=== PATIENT | female | born 1995 | race Caucasian/White ===

== ENCOUNTER 2019-09-28 07:26 | Inpatient (IN) ==
[2019-09-28] MEDS ORDERED: OXYTOCIN 30 UNITS/500 ML BAG IV PRN ×2 (08:52→08:59)
[2019-09-28] MEDS ORDERED: CEFAZOLIN 2000MG 2,000 MG/15 ML SYR IV STA (08:56)
--- NOTE | 2019-09-28 09:00 | History & Physical Report ---
Date of Service September 28, 2019 Assessment & Plan (1) Carrier of group B Streptococcus: (2) Supervision of normal intrauterine in primigravida: 23yo at 39.[address] endy [place]. Presents for IOL for gestational hypertension. 1. Fetus: Cat 1 2. Labor: s/p de la garza. Start oxytocin 3. GBS positive. Reports that has used PCN without issue recently 4. Vitals: WNL. Will continue to monitor. PIH labs normal yesterday (3) Gestational hypertension without significant proteinuria: Admission and Anticipated Discharge Date Admission Date: September 28, 2019 History of Present Illness Primary Care Provider: NO PCP 23yo at 39.3 endy [place]. Presents for IOL for gestational hypertension. otherwise complicated by BMI 47, GBS positive and suspected LGA fetus. Denies LOF, VB. Good FM OB Labs: Blood Type A Positive 02/27/19 Antibody Screen NEGATIVE 02/27/19 Hemoglobin 11.9 g/dL (12.0-16.0) L 07/20/19 Hematocrit 34.8 % (37-47) L 07/20/19 Mean Corpuscular Volume 90.4 fL (80-100) 07/20/19 Platelet Count 212 K/uL (130-400) 07/20/19 Rubella IgG Antibody Immune (Immune) 02/27/19 Rapid Plasma Reagin Nonreactive (Nonreactive) 02/27/19 Hepatitis B Surface Antigen Neg (Neg) 02/27/19 HIV (1&2) Ab and P24 Ag, 4th Gener Neg (Neg) 02/27/19 Glucose 1 Hour 50 gm Load 125 mg/dl (70-130) 07/10/19 OB Optional Labs: Chlamydia trachomatis RNA NOT DETECTED (NOT DETECTED) 02/27/19 Neisseria gonorrhoeae RNA NOT DETECTED (NOT DETECTED) 02/27/19 Labs Reviewed: (-)cfDNA, declined CF/SMA/MSAFP-TJH Allergies Allergy/AdvReac Type Severity Reaction Status Date / Time Sulfa (Sulfonamide AdvReac Mild Unknown Verified 09/28/19 08:34 Antibiotics) Penicillins AdvReac Unknown Unknown Verified 09/28/19 08:34 Home Medications Home Medications Medication Instructions Recorded Confirmed Type PNV 153-FA 400 mcg-om3 35 mg-dha 1 tab PO DAILY 02/16/19 09/28/19 History 25 mg-epa 5 mg-fish oil chew tablet Patient History Social History Preferred Language: Emir[place] Communication Ability: Effective Building Appraiser Required: No Beliefs That Will Affect Care: None marital status: marital status details: Mello De Santiago ( 30) [phone] Current Living Situation: Spouse Current Living Situation Comment: lives with spouse, 1 dog, 2 cats, changing litter current occupational status: employed current occupation: [employer] Other Information That Helps Us Care for You: No Feels Safe at Home: Yes Safety Concerns: Feels Safe At This Time Smoking Status: Former smoker Tobacco Type: cigarettes ; Cigarettes Per Day: 4 ; Do You Dip or Chew Tobacco: No ; Tobacco Cessation Education Requested by Patient: No Hx Alcohol Use: No Hx Substance Use: No Physical Exam Constitutional: WD/WN, vitals as above Respiratory: normal respiratory effort Cardiovascular: RRR, no murmur, no edema Gastrointestinal (Abdomen): Inspection/Auscultation: abdomen normal to inspection Percussion/Palpation: abdomen soft; abdomen nontender, no guarding and abdomen not rigid Neurologic: patellar DTR's 2+ bilat, sensation intact Psychiatric: A+Ox3, euthymic affect Genitourinary: OB Exam Abdomen: + vertex Manual OB Exam: + cervical dilation 2 cm, + cervical effacement 50%, + station high and + amniotic fluid OB Exam Monitor Tracing: + external FHT monitor used, + external uterine monitor used, + category I and + normal FHT variability; no category III, no early decelerations present, no late decelerations present and no variable decelerations Results & Data ([facility]) Vital Signs (Past 12 Hours) Vital Signs Temp Pulse Resp BP 09/28/19 07:43 36.7 C 85 20 129/84 09/28/19 07:40 85 129/84 Coding Level of Care Code None Diagnoses Carrier of group B Streptococcus Z22.330 Supervision of normal intrauterine in primigravida Z34.00 Gestational hypertension without significant proteinuria O13.9
[2019-09-28] MEDS ORDERED: PENICILLIN G POTASSIUM 6 MU in DEXTROSE 5% 250 ML IV STA (09:14)
[2019-09-28] MEDS: LACTATED RINGER'S 1,000 ML IV PRN ×3 (09:16→21:57)
[2019-09-28 09:24] LABS: Hematocrit (blood only) 35.9 % (37-47); Hemoglobin 11.9 g/dL (12.0-16.0); Mean Corpuscular Volume 90.4 fL (80-100); Mean Platelet Volume 10.4 fL (7.4-10.4); Platelet Count 199 K/uL (130-400); RDW Coefficient of Variation 14.1 % (11.5-14.5); RDW Standard Deviation 46.3 fL (36.4-46.3); Red Blood Count 3.97 M/uL (4.2-5.4); White Blood Count 11.13 K/uL (4.8-10.8)
[2019-09-28 09:46] LABS: Mean Corpuscular Hgb Conc 33.1 g/dL (32-36)
[2019-09-28] MEDS ORDERED: ePHEDrine sulfate 50 MG/ML AMP ONE (13:00)
[2019-09-28] MEDS ORDERED: BUPIVACAINE 0.25% 30 ML VIAL ONE (13:01)
[2019-09-28] MEDS ORDERED: fentaNYL citrate 100 MCG/2 ML VIAL ONE (13:01)
[2019-09-28] MEDS ORDERED: fentaNYL 2MCG/ML ROPIV 1.25MG/ML 100 ML BAG EPI ONE (13:01)
--- NOTE | 2019-09-28 13:21 | Anesthesiology Consultation ---
Date of Service September 28, 2019 Assessment & Plan Chart Review Chart Review: Acceptable Risk for Surgery, Patient NOT seen in Pre Admission Testing and Acceptable Risk for Labor Epidural Consults Requested none ASA ASA3 Proposed Anesthesia Anesthesia Type: Labor Epidural and CSE History Height/Weight Height: 5 ft 6 in Weight: 132.903 kg Allergies Allergy/AdvReac Type Severity Reaction Status Date / Time Sulfa (Sulfonamide AdvReac Mild Unknown Verified 09/28/19 08:34 Antibiotics) Penicillins AdvReac Unknown Unknown Verified 09/28/19 08:34 Medications Home Medications Medication Instructions Recorded Confirmed Last Taken PNV 153-FA 400 mcg-om3 35 mg-dha 1 tab PO DAILY 02/16/19 09/28/19 09/06/19 25 mg-epa 5 mg-fish oil chew tablet Active Medications Generic Name Dose Route Start Last Admin Trade Name Freq PRN Reason Stop Dose Admin Lactated Ringer's 1,000 mls @ 125 mls/hr 09/28/19 08:52 09/28/19 12:59 Lr IV 09/30/19 08:51 999 mls/hr .Q8H PRN Infusion L&D Protocol Protocol Oxytocin 30 units in 500 mls @ 10 mls/hr 09/28/19 08:59 09/28/19 11:32 Pitocin IV 09/30/19 08:58 0.6 units/hr .Q24H PRN 10 mls/hr Labor Induction/Augmentation Titration Protocol 0.6 UNITS/HR Past Medical History Medical History Asthma Cervical cancer screening H/O miscarriage, currently Obesity (BMI 30-39.9) Ovarian cyst Exercise / Class Metabolic Activity II 4-5 Yardwork/Stairs/Walk up hill Past Family History Family History Father Hypertension Grandfather Diabetes Heart disease Brother Heart murmur Mother Dyslipidemia Sister Thyroid disease Other No pertinent family history Past Surgical History Surgical History No significant past surgical history S/P lateral meniscal repair S/P MCL repair [place] teeth extracted Past Anesthesia History No Hx of Anesthesia Complications and No Family Hx of Anesthesia Complications History of PONV No Hx of PONV and No Hx of Motion Sickness Social History Smoking Status: Former smoker tobacco type: cigarettes Smoking cigarettes per day: 4 Do You Dip or Chew Tobacco: No Hx Alcohol Use: No Hx Substance Use: No substance use type: does not use Physical Exam Vital Signs Last Vital Signs Temp 36.7 C 09/28/19 11:28 Pulse 76 09/28/19 13:15 Resp 22 09/28/19 11:28 BP 137/76 09/28/19 12:37 Pulse Ox 99 09/28/19 13:15 Testing Laboratory Results 09/28/19 09:07 covid test-neg.
--- NOTE | 2019-09-28 13:22 | Labor Progress Brief Note ---
Date of Service September 28, 2019 Subjective Reason For Note: Routine Evaluation Assessment & Plan (1) Carrier of group B Streptococcus: (2) Supervision of normal intrauterine in primigravida: 23yo at [place] [place]. Presents for IOL for gestational hypertension. 1. Fetus: Cat 1 2. Labor: s/p de la garza. Start oxytocin 3. GBS positive. Reports that has used PCN without issue recently 4. Vitals: WNL. Will continue to monitor. PIH labs normal yesterday (3) Gestational hypertension without significant proteinuria: Admission and Anticipated Discharge Date Admission Date: September 28, 2019 Physical Exam Genitourinary: OB Exam Abdomen: + vertex Manual OB Exam: + cervical dilation (3.5) 3 cm, + cervical effacement 50% and + station -2 OB Exam Monitor Tracing: + external FHT monitor used, + external uterine monitor used, + category I and + normal FHT variability; no category II, no early decelerations present, no late decelerations present and no variable decelerations Results & Data ([facility]) Vital Signs (Past 12 Hours) Vital Signs Temp Pulse Resp BP Pulse Ox 09/28/19 13:15 76 99 09/28/19 13:10 84 98 09/28/19 12:37 80 137/76 09/28/19 11:28 36.7 C 81 22 137/84 09/28/19 10:38 82 131/87 09/28/19 07:43 36.7 C 85 20 129/84 09/28/19 07:40 85 129/84 Coding Level of Care Code None Diagnoses Carrier of group B Streptococcus Z22.330 Supervision of normal intrauterine in primigravida Z34.00 Gestational hypertension without significant proteinuria O13.9
[2019-09-28] MEDS ORDERED: NALOXONE HCL 0.4 MG/1 ML VIAL/CARP IV PRN (13:51)
[2019-09-28] MEDS ORDERED: NALOXONE HCL 1 MG in SODIUM CHLORIDE 0.9% 1000ML 1,000 ML IV PRN (13:51)
[2019-09-28] MEDS ORDERED: DiphenhydrAMINE HCL 50 MG/ML VIAL IV PRN (13:51)
[2019-09-28] MEDS ORDERED: ONDANSETRON INJ 2 MG/ML 2 ML VIAL IV PRN (13:51)
[2019-09-28] MEDS ORDERED: PROMETHAZINE HCL 25 MG in SODIUM CHLORIDE 0.9% 50 ML IV PRN (13:51)
[2019-09-28] MEDS ORDERED: ePHEDrine sulfate 50 MG/ML AMP IV PRN (13:51)
[2019-09-28] MEDS: PENICILLIN G POTASSIUM 3 MU in DEXTROSE 5% 100 ML IV PRN ×3 (14:59→22:59)
--- NOTE | 2019-09-28 16:08 | Labor Progress Brief Note ---
Date of Service September 28, 2019 Subjective Reason For Note: Routine Evaluation Assessment & Plan (1) Carrier of group B Streptococcus: (2) Supervision of normal intrauterine in primigravida: 23yo at 39.[place]. Presents for IOL for gestational hypertension. 1. Fetus: Cat 1 2. Labor: s/p de la garza. Continue oxytocin. AROM 3. GBS positive. Reports that she has used PCN without issue recently 4. Vitals: WNL. Will continue to monitor. PIH labs normal yesterday (3) Gestational hypertension without significant proteinuria: Admission and Anticipated Discharge Date Admission Date: September 28, 2019 Physical Exam Genitourinary: OB Exam Abdomen: + vertex Manual OB Exam: + cervical dilation 4 cm, + cervical effacement 60%, + station -2 and + amniotic fluid bloody OB Exam Monitor Tracing: + external FHT monitor used, + external uter ine monitor used, + category I and + normal FHT variability; no early decelerations present, no late decelerations present and no variable decelerations Results & Data ([facility]) Vital Signs (Past 12 Hours) Vital Signs Temp Pulse Resp BP Pulse Ox 09/28/19 16:05 78 09/28/19 16:03 84 94 09/28/19 16:00 79 111/55 L 98 09/28/19 15:55 73 98 09/28/19 15:50 74 99 09/28/19 15:46 78 125/75 09/28/19 15:45 74 98 09/28/19 15:40 73 96 09/28/19 15:35 81 98 09/28/19 15:31 36.9 C 76 20 126/72 09/28/19 15:30 75 97 09/28/19 15:25 80 98 09/28/19 15:20 76 97 09/28/19 15:16 76 109/52 L 09/28/19 15:15 78 98 09/28/19 15:10 78 98 09/28/19 15:05 77 96 09/28/19 15:00 78 110/53 L 98 09/28/19 14:59 20 09/28/19 14:55 77 97 09/28/19 14:50 82 99 09/28/19 14:46 72 125/74 09/28/19 14:45 73 96 09/28/19 14:40 75 96 07/06/20 14:35 68 95 09/28/19 14:31 69 136/78 09/28/19 14:30 77 97 09/28/19 14:25 80 98 09/28/19 14:20 78 99 09/28/19 14:17 90 137/83 09/28/19 14:15 75 98 09/28/19 14:10 79 98 09/28/19 14:05 78 99 09/28/19 14:00 77 98 09/28/19 13:58 80 18 125/75 09/28/19 13:55 82 98 09/28/19 13:50 78 118/65 98 09/28/19 13:48 90 119/74 09/28/19 13:47 85 121/79 09/28/19 13:45 82 98 09/28/19 13:40 77 98 09/28/19 13:35 70 99 09/28/19 13:30 86 99 09/28/19 13:25 77 98 09/28/19 13:20 83 98 09/28/19 13:15 76 99 09/28/19 13:10 84 98 09/28/19 12:37 80 137/76 09/28/19 11:28 36.7 C 81 22 137/84 09/28/19 10:38 82 131/87 09/28/19 07:43 36.7 C 85 20 129/84 09/28/19 07:40 85 129/84 Coding Level of Care Code None Diagnoses Carrier of group B Streptococcus Z22.330 Supervision of normal intrauterine in primigravida Z34.00 Gestational hypertension without significant proteinuria O13.9
[2019-09-28] MEDS ORDERED: CEFAZOLIN 1000MG 1,000 MG/7.5 ML SYR IV SCH (17:00)
--- NOTE | 2019-09-28 18:55 | Labor Progress Brief Note ---
Date of Service September 28, 2019 Subjective Reason For Note: Routine Evaluation Assessment & Plan (1) Carrier of group B Streptococcus: (2) Supervision of normal intrauterine in primigravida: 23yo at 39[place]. Presents for IOL for gestational hypertension. 1. Fetus: Cat 1 2. Labor: Unchanged. s/p de la garza. Continue oxytocin. AROM, IUPC placed 3. GBS positive. Reports that she has used PCN without issue recently 4. Vitals: WNL. Will continue to monitor. PIH labs normal yesterday (3) Gestational hypertension without significant proteinuria: Admission and Anticipated Discharge Date Admission Date: September 28, 2019 Physical Exam Genitourinary: Manual OB Exam: + cervical dilation 4 cm, + cervical effacement 60%, + station -2 and + amniotic fluid OB Exam Monitor Tracing: + external FHT monitor used, + external uterine monitor used, + category I and + normal FHT variability IUPC placed Results & Data ([facility]) Vital Signs (Past 12 Hours) Vital Signs Temp Pulse Resp BP Pulse Ox 09/28/19 18:50 75 98 09/28/19 18:46 82 120/76 90 09/28/19 18:45 71 97 09/28/19 18:40 72 97 09/28/19 18:35 77 98 09/28/19 18:31 71 129/78 92 09/28/19 18:30 71 98 09/28/19 18:25 79 99 09/28/19 18:20 81 99 09/28/19 18:16 86 122/73 09/28/19 18:15 86 97 09/28/19 18:10 82 96 09/28/19 18:05 77 98 09/28/19 18:00 77 121/71 97 09/28/19 17:55 76 98 09/28/19 17:50 75 98 09/28/19 17:45 80 115/72 98 09/28/19 17:40 75 96 09/28/19 17:35 76 98 09/28/19 17:31 67 114/70 09/28/19 17:30 78 98 09/28/19 17:25 74 98 09/28/19 17:20 86 97 09/28/19 17:17 75 108/60 09/28/19 17:15 78 98 07/06/20 17:10 75 98 09/28/19 17:05 76 96 09/28/19 17:00 78 16 111/63 96 09/28/19 16:55 76 97 09/28/19 16:50 74 94 09/28/19 16:47 74 119/69 09/28/19 16:45 76 96 09/28/19 16:40 79 97 09/28/19 16:37 72 94 09/28/19 16:35 76 96 09/28/19 16:30 71 122/64 95 09/28/19 16:25 68 97 09/28/19 16:20 78 98 09/28/19 16:15 73 119/64 98 09/28/19 16:10 78 97 09/28/19 16:05 78 97 09/28/19 16:04 16 09/28/19 16:03 84 94 09/28/19 16:00 79 111/55 L 98 09/28/19 15:55 73 98 09/28/19 15:50 74 99 09/28/19 15:46 78 125/75 09/28/19 15:45 74 98 09/28/19 15:40 73 96 09/28/19 15:35 81 98 09/28/19 15:31 36.9 C 76 20 126/72 09/28/19 15:30 75 97 09/28/19 15:25 80 98 09/28/19 15:20 76 97 09/28/19 15:16 76 109/52 L 09/28/19 15:15 78 98 09/28/19 15:10 78 98 09/28/19 15:05 77 96 09/28/19 15:00 78 110/53 L 98 09/28/19 14:59 20 09/28/19 14:55 77 97 09/28/19 14:50 82 99 09/28/19 14:46 72 125/74 09/28/19 14:45 73 96 09/28/19 14:40 75 96 09/28/19 14:35 68 95 09/28/19 14:31 69 136/78 09/28/19 14:30 77 97 09/28/19 14:25 80 98 09/28/19 14:20 78 99 09/28/19 14:17 90 137/83 09/28/19 14:15 75 98 09/28/19 14:10 79 98 09/28/19 14:05 78 99 09/28/19 14:00 77 98 09/28/19 13:58 80 18 125/75 09/28/19 13:55 82 98 09/28/19 13:50 78 118/65 98 09/28/19 13:48 90 119/74 09/28/19 13:47 85 121/79 09/28/19 13:45 82 98 09/28/19 13:40 77 98 09/28/19 13:35 70 99 09/28/19 13:30 86 99 09/28/19 13:25 77 98 09/28/19 13:20 83 98 09/28/19 13:15 76 99 09/28/19 13:10 84 98 09/28/19 12:37 80 137/76 09/28/19 11:28 36.7 C 81 22 137/84 09/28/19 10:38 82 131/87 09/28/19 07:43 36.7 C 85 20 129/84 09/28/19 07:40 85 129/84 Coding Level of Care Code None Diagnoses Carrier of group B Streptococcus Z22.330 Supervision of normal intrauterine in primigravida Z34.00 Gestational hypertension without significant proteinuria O13.9
[2019-09-28] MEDS: fentaNYL 2MCG/ML ROPIV 1.25MG/ML 100 ML BAG EPI PRN (22:58)
--- NOTE | 2019-09-29 02:23 | Labor Progress Brief Note ---
Date of Service September 29, 2019 Subjective Reason For Note: Routine Evaluation Assessment & Plan (1) Carrier of group B Streptococcus: (2) Supervision of normal intrauterine in primigravida: 23yo at 39[place]. Presents for IOL for gestational hypertension. 1. Fetus: Cat 1 2. Labor: Progressing. s/p de la garza. Continue oxytocin. AROM, IUPC placed 3. GBS positive. Reports that she has used PCN without issue recently 4. Vitals: WNL. Will continue to monitor. PIH labs normal yesterday (3) Gestational hypertension without significant proteinuria: Admission and Anticipated Discharge Date Admission Date: September 28, 2019 Physical Exam Genitourinary: OB Exam Abdomen: + vertex Manual OB Exam: + cervical dilation (5.5), + cervical effacement 80%, + station -2 and + amniotic fluid clear OB Exam Monitor Tracing: + intra-uterine pressure catheter used, + category I and + normal FHT variability; no early decelerations present, no late decelerations present and no variable decelerations Results & Data ([facility]) Vital Signs (Past 12 Hours) Vital Signs Temp Pulse Resp BP Pulse Ox 09/29/19 02:15 81 99 09/29/19 02:12 83 152/79 H 09/29/19 02:10 86 100 09/29/19 02:05 76 97 09/29/19 02:00 82 98 09/29/19 01:58 88 92 09/29/19 01:57 82 131/65 09/29/19 01:55 78 99 09/29/19 01:50 82 98 09/29/19 01:45 37.1 C 73 98 09/29/19 01:42 88 134/77 09/29/19 01:40 83 97 09/29/19 01:35 82 98 09/29/19 01:30 77 16 97 09/29/19 01:28 81 131/72 09/29/19 01:25 76 96 09/29/19 01:20 77 95 09/29/19 01:15 80 98 09/29/19 01:12 85 135/81 09/29/19 01:11 89 94 09/29/19 01:10 91 H 98 09/29/19 01:05 86 97 09/29/19 01:00 81 16 100 09/29/19 00:57 77 128/81 09/29/19 00:55 77 98 09/29/19 00:54 37.2 C 95 H 94 09/29/19 00:50 77 98 09/29/19 00:47 75 94 09/29/19 00:45 76 93 09/29/19 00:42 73 116/72 09/29/19 00:41 72 93 09/29/19 00:40 77 97 09/29/19 00:36 74 94 09/29/19 00:35 72 95 09/29/19 00:30 81 18 98 09/29/19 00:27 74 126/69 09/29/19 00:25 91 H 100 09/29/19 00:22 77 94 09/29/19 00:20 76 95 09/29/19 00:15 78 97 09/29/19 00:12 82 122/76 09/29/19 00:10 81 98 09/29/19 00:05 80 97 09/29/19 00:02 77 93 09/29/19 00:00 82 18 96 09/28/19 23:59 76 114/69 09/28/19 23:55 78 96 09/28/19 23:50 80 98 09/28/19 23:45 73 97 09/28/19 23:42 73 118/63 09/28/19 23:40 81 99 09/28/19 23:35 77 97 09/28/19 23:30 73 20 98 09/28/19 23:29 74 125/64 09/28/19 23:25 79 98 09/28/19 23:20 83 99 09/28/19 23:15 82 98 06 23:13 81 112/60 09/28/19 23:10 81 97 09/28/19 23:05 80 96 06 23:00 36.9 C 85 16 98 06 22:57 82 119/66 09/28/19 22:55 78 97 09/28/19 22:50 79 96 06 22:45 77 95 09/28/19 22:44 80 94 0620 22:42 72 115/64 0620 22:40 79 97 070620 22:39 79 94 09/28/19 22:35 74 96 07/06/20 22:30 77 20 98 07/0620 22:27 77 123/65 0720 22:25 74 95 070620 22:20 73 96 0620 22:15 81 98 070620 22:12 83 128/71 0620 22:10 82 96 0620 22:05 81 98 070620 22:00 79 18 97 0620 21:56 81 129/72 20 21:55 77 98 070620 21:50 72 97 070620 21:45 80 99 070620 21:40 84 97 20 21:36 78 92 20 21:35 77 98 20 21:31 75 127/76 20 21:30 72 16 99 20 21:25 76 96 20 21:20 75 94 20 21:15 79 119/57 L 97 09/28/19 21:10 77 97 06 21:05 76 96 0620 21:00 36.8 C 79 18 119/56 L 98 0620 20:55 77 98 070620 20:53 74 122/60 0620 20:50 79 98 0620 20:45 77 99 0620 20:40 82 96 0620 20:35 75 98 070620 20:32 80 139/70 070620 20:30 81 20 98 0620 20:25 73 96 0620 20:20 78 97 070620 20:15 86 104/68 97 06/20 20:10 78 98 07/0620 20:05 81 98 070620 20:01 75 118/73 0620 20:00 75 18 97 0620 19:55 74 97 0620 19:50 77 97 /0620 19:46 79 128/69 070620 19:45 76 98 07/0620 19:40 77 97 07/0620 19:35 81 97 070620 19:31 75 131/61 07/06/20 19:30 79 18 96 07/06/20 19:25 81 97 07/06/20 19:20 72 97 07/06/20 19:15 75 129/71 97 07/06/20 19:10 78 96 07/06/20 19:05 79 96 07/06/20 19:04 36.9 C 18 09/28/19 19:01 78 122/53 L 0620 19:00 79 97 070620 18:55 79 98 070620 18:50 75 98 07/06/20 18:46 82 120/76 90 07/0620 18:45 71 97 07/06/20 18:40 72 97 070620 18:35 77 98 07/06/20 18:31 71 129/78 92 06/20 18:30 71 98 07/06/20 18:25 79 99 07/06/20 18:20 81 99 07/06/20 18:16 86 122/73 070620 18:15 86 97 0620 18:10 82 96 070620 18:05 77 98 070620 18:00 77 121/71 97 07/06/20 17:55 76 98 07/06/20 17:50 75 98 07/06/20 17:45 80 115/72 98 07/06/20 17:40 75 96 07/06/20 17:35 76 98 07/06/20 17:31 67 114/70 07/06/20 17:30 78 98 07/06/20 17:25 74 98 07/06/20 17:20 86 97 07/06/20 17:17 75 108/60 07/06/20 17:15 78 98 07/06/20 17:10 75 98 07/06/20 17:05 76 96 07/06/20 17:00 78 16 111/63 96 07/06/20 16:55 76 97 07/06/20 16:50 74 94 07/06/20 16:47 74 119/69 07/06/20 16:45 76 96 07/06/20 16:40 79 97 07/06/20 16:37 72 94 07/06/20 16:35 76 96 07/06/20 16:30 71 122/64 95 07/06/20 16:25 68 97 07/06/20 16:20 78 98 09/28/19 16:15 73 119/64 98 09/28/19 16:10 78 97 09/28/19 16:05 78 97 09/28/19 16:04 16 09/28/19 16:03 84 94 09/28/19 16:00 79 111/55 L 98 09/28/19 15:55 73 98 09/28/19 15:50 74 99 09/28/19 15:46 78 125/75 09/28/19 15:45 74 98 09/28/19 15:40 73 96 09/28/19 15:35 81 98 09/28/19 15:31 36.9 C 76 20 126/72 09/28/19 15:30 75 97 09/28/19 15:25 80 98 09/28/19 15:20 76 97 09/28/19 15:16 76 109/52 L 09/28/19 15:15 78 98 09/28/19 15:10 78 98 09/28/19 15:05 77 96 09/28/19 15:00 78 110/53 L 98 09/28/19 14:59 20 09/28/19 14:55 77 97 09/28/19 14:50 82 99 09/28/19 14:46 72 125/74 09/28/19 14:45 73 96 09/28/19 14:40 75 96 09/28/19 14:35 68 95 09/28/19 14:31 69 136/78 09/28/19 14:30 77 97 09/28/19 14:25 80 98 Coding Level of Care Code None Diagnoses Carrier of group B Streptococcus Z22.330 Supervision of normal intrauterine in primigravida Z34.00 Gestational hypertension without significant proteinuria O13.9
[2019-09-29] MEDS: LACTATED RINGER'S 1,000 ML IV PRN (02:59)
[2019-09-29] MEDS: PENICILLIN G POTASSIUM 3 MU in DEXTROSE 5% 100 ML IV PRN ×2 (02:59→07:03)
[2019-09-29] MEDS: fentaNYL 2MCG/ML ROPIV 1.25MG/ML 100 ML BAG EPI PRN (03:40)
[2019-09-29] MEDS ORDERED: BUPIVACAINE 0.25% 30 ML VIAL ONE (03:53)
[2019-09-29] MEDS ORDERED: fentaNYL citrate 100 MCG/2 ML VIAL ONE (03:54)
--- NOTE | 2019-09-29 04:03 | Communication Note ---
Date of Service: September 29, 2019 pt. epidural bolused at 0358;ptc/o pain 10/10;epidural cath. bolused w/ 12 ml 0.17% bupivacaine + 100 mcgs fentanyl;neg. asp. w/ incremental injections.vital signs stable.
--- NOTE | 2019-09-29 07:39 | Labor Progress Brief Note ---
Date of Service September 29, 2019 Subjective Reason For Note: Routine Evaluation Assessment & Plan (1) Carrier of group B Streptococcus: (2) Supervision of normal intrauterine in primigravida: 23yo at 39.3 endy GA. Presents for IOL for gestational hypertension. Complete and laboring down. Will start pushing with urge 1. Fetus: Cat 1 2. Labor: Complete. s/p de la garza. Continue oxytocin. AROM, IUPC placed 3. GBS positive. Reports that she has used PCN without issue recently 4. Vitals: WNL. Will continue to monitor. PIH labs normal yesterday (3) Gestational hypertension without significant proteinuria: Admission and Anticipated Discharge Date Admission Date: September 28, 2019 Physical Exam Genitourinary: OB Exam Abdomen: + vertex Manual OB Exam: + cervical dilation 10 cm, + cervical effacement 100%, + station + 1 and + amniotic fluid clear OB Exam Monitor Tracing: + external FHT monitor used, + intra-uterine pressure catheter used, + category I and + normal FHT variability; no early decelerations present, no late decelerations present and no variable decelerations Results & Data ([facility]) Vital Signs (Past 12 Hours) Vital Signs Temp Pulse Resp BP Pulse Ox 09/29/19 07:32 83 97 09/29/19 07:27 85 137/83 97 09/29/19 07:22 37.4 C 83 20 97 09/29/19 07:17 91 H 97 09/29/19 07:12 88 132/82 97 09/29/19 07:07 85 97 09/29/19 07:02 93 H 98 09/29/19 07:00 18 09/29/19 06:58 82 118/62 09/29/19 06:57 84 96 09/29/19 06:52 94 H 96 09/29/19 06:47 90 95 09/29/19 06:43 88 120/66 94 09/29/19 06:42 91 H 98 09/29/19 06:37 89 98 09/29/19 06:35 94 H 93 09/29/19 06:32 93 H 97 09/29/19 06:30 95 H 20 94 09/29/19 06:28 92 H 137/84 09/29/19 06:27 88 98 09/29/19 06:22 98 H 97 09/29/19 06:20 96 H 93 09/29/19 06:17 91 H 97 09/29/19 06:15 84 94 09/29/19 06:14 81 142/75 H 09/29/19 06:12 84 95 07 06:09 84 94 09/29/19 06:07 84 94 09/29/19 06:04 83 94 09/29/19 06:02 83 96 09/29/19 06:00 18 09/29/19 05:58 93 H 126/77 09/29/19 05:57 93 H 97 09/29/19 05:56 103 H 91 09/29/19 05:52 92 H 98 09/29/19 05:50 37.1 C 09/29/19 05:47 92 H 98 09/29/19 05:43 89 131/73 09/29/19 05:42 93 H 94 09/29/19 05:37 89 94 09/29/19 05:36 85 94 09/29/19 05:32 85 96 09/29/19 05:31 89 94 09/29/19 05:30 16 09/29/19 05:28 84 135/78 07 05:27 86 97 07 05:25 87 94 09/29/19 05:22 88 95 09/29/19 05:17 86 96 09/29/19 05:12 84 133/82 96 09/29/19 05:07 83 96 09/29/19 05:05 83 94 09/29/19 05:02 87 96 09/29/19 05:00 16 09/29/19 04:57 84 131/77 95 07 04:52 83 97 09/29/19 04:47 86 97 09/29/19 04:43 82 133/78 09/29/19 04:42 86 96 07 04:37 85 97 09/29/19 04:32 87 96 09/29/19 04:30 16 09/29/19 04:27 83 137/79 97 09/29/19 04:22 85 100 07 04:17 91 H 99 09/29/19 04:16 94 H 93 07 04:12 98 H 159/85 H 97 09/29/19 04:11 100 H 93 07/07/20 04:07 96 H 98 09/29/19 04:02 97 H 98 09/29/19 04:00 20 09/29/19 03:58 110 H 126/80 09/29/19 03:57 102 H 137/83 97 09/29/19 03:52 122 H 97 09/29/19 03:47 85 98 09/29/19 03:45 37.1 C 09/29/19 03:42 79 121/56 L 100 09/29/19 03:37 97 H 99 09/29/19 03:32 84 100 09/29/19 03:30 16 09/29/19 03:29 83 93 09/29/19 03:28 80 137/84 09/29/19 03:27 82 100 09/29/19 03:20 81 99 09/29/19 03:15 83 98 09/29/19 03:12 74 125/65 09/29/19 03:10 81 96 09/29/19 03:05 79 97 09/29/19 03:00 82 18 96 09/29/19 02:58 80 137/74 09/29/19 02:55 77 97 09/29/19 02:50 83 93 09/29/19 02:45 79 96 09/29/19 02:43 84 128/74 09/29/19 02:41 81 94 09/29/19 02:40 81 95 09/29/19 02:35 80 96 09/29/19 02:30 76 16 96 09/29/19 02:29 73 117/64 09/29/19 02:25 88 99 09/29/19 02:20 79 96 09/29/19 02:15 81 99 09/29/19 02:12 83 152/79 H 09/29/19 02:10 86 100 09/29/19 02:05 76 97 09/29/19 02:00 82 16 98 09/29/19 01:58 88 92 09/29/19 01:57 82 131/65 09/29/19 01:55 78 99 09/29/19 01:50 82 98 09/29/19 01:45 37.1 C 73 98 09/29/19 01:42 88 134/77 09/29/19 01:40 83 97 09/29/19 01:35 82 98 09/29/19 01:30 77 16 97 09/29/19 01:28 81 131/72 09/29/19 01:25 76 96 09/29/19 01:20 77 95 09/29/19 01:15 80 98 09/29/19 01:12 85 135/81 09/29/19 01:11 89 94 09/29/19 01:10 91 H 98 09/29/19 01:05 86 97 09/29/19 01:00 81 16 100 09/29/19 00:57 77 128/81 09/29/19 00:55 77 98 09/29/19 00:54 37.2 C 95 H 94 09/29/19 00:50 77 98 09/29/19 00:47 75 94 09/29/19 00:45 76 93 09/29/19 00:42 73 116/72 09/29/19 00:41 72 93 09/29/19 00:40 77 97 09/29/19 00:36 74 94 09/29/19 00:35 72 95 09/29/19 00:30 81 18 98 09/29/19 00:27 74 126/69 09/29/19 00:25 91 H 100 09/29/19 00:22 77 94 09/29/19 00:20 76 95 09/29/19 00:15 78 97 09/29/19 00:12 82 122/76 09/29/19 00:10 81 98 09/29/19 00:05 80 97 09/29/19 00:02 77 93 09/29/19 00:00 82 18 96 09/28/19 23:59 76 114/69 09/28/19 23:55 78 96 09/28/19 23:50 80 98 09/28/19 23:45 73 97 09/28/19 23:42 73 118/63 09/28/19 23:40 81 99 06 23:35 77 97 09/28/19 23:30 73 20 98 06 23:29 74 125/64 09/28/19 23:25 79 98 06 23:20 83 99 06 23:15 82 98 06 23:13 81 112/60 09/28/19 23:10 81 97 09/28/19 23:05 80 96 07 23:00 36.9 C 85 16 98 20 22:57 82 119/66 20 22:55 78 97 09/28/19 22:50 79 96 20 22:45 77 95 20 22:44 80 94 20 22:42 72 115/64 20 22:40 79 97 09/28/19 22:39 79 94 09/28/19 22:35 74 96 09/28/19 22:30 77 20 98 06 22:27 77 123/65 09/28/19 22:25 74 95 20 22:20 73 96 09/28/19 22:15 81 98 09/28/19 22:12 83 128/71 09/28/19 22:10 82 96 09/28/19 22:05 81 98 09/28/19 22:00 79 18 97 09/28/19 21:56 81 129/72 09/28/19 21:55 77 98 09/28/19 21:50 72 97 0620 21:45 80 99 20 21:40 84 97 20 21:36 78 92 09/28/19 21:35 77 98 09/28/19 21:31 75 127/76 20 21:30 72 16 99 0620 21:25 76 96 20 21:20 75 94 0620 21:15 79 119/57 L 97 09/28/19 21:10 77 97 06 21:05 76 96 06 21:00 36.8 C 79 18 119/56 L 98 0620 20:55 77 98 07/0620 20:53 74 122/60 070620 20:50 79 98 070620 20:45 77 99 0620 20:40 82 96 070620 20:35 75 98 070620 20:32 80 139/70 070620 20:30 81 20 98 070620 20:25 73 96 0720 20:20 78 97 20 20:15 86 104/68 97 07/06/20 20:10 78 98 09/28/19 20:05 81 98 09/28/19 20:01 75 118/73 09/28/19 20:00 75 18 97 09/28/19 19:55 74 97 09/28/19 19:50 77 97 09/28/19 19:46 79 128/69 09/28/19 19:45 76 98 09/28/19 19:40 77 97 Coding Level of Care Code None Diagnoses Carrier of group B Streptococcus Z22.330 Supervision of normal intrauterine in primigravida Z34.00 Gestational hypertension without significant proteinuria O13.9
--- NOTE | 2019-09-29 08:45 | Labor Progress Brief Note ---
Date of Service September 29, 2019 Subjective comfortable Assessment & Plan (1) Gestational hypertension without significant proteinuria: Has labored down for about 2 hours. Will begin second stage. Fetus reassuring. large caput present and that is +2, vertex is likely +1. Will be a tight fit. Admission and Anticipated Discharge Date Admission Date: September 28, 2019 Physical Exam Constitutional: WD/WN, vitals as above Psychiatric: A+Ox3, euthymic affect Genitourinary: cx--c/c/caput at +1-2 and coming under pubix toco--q1-2min, pit at 12 runs of tachysystole efm--130s with mod variability , small accels, no decels Results & Data ([facility]) Vital Signs (Past 12 Hours) Vital Signs Temp Pulse Resp BP Pulse Ox 09/29/19 08:37 37.2 C 92 H 20 97 09/29/19 08:34 88 94 09/29/19 08:32 87 94 09/29/19 08:29 84 94 09/29/19 08:28 81 135/68 09/29/19 08:27 83 96 09/29/19 08:23 85 94 09/29/19 08:22 81 94 09/29/19 08:18 80 94 09/29/19 08:17 79 95 09/29/19 08:13 90 118/71 09/29/19 08:12 82 97 09/29/19 08:07 94 H 98 09/29/19 08:02 87 98 09/29/19 08:01 20 09/29/19 07:57 79 136/79 98 09/29/19 07:52 87 98 09/29/19 07:47 99 H 98 09/29/19 07:44 83 139/81 09/29/19 07:42 87 98 09/29/19 07:40 79 94 09/29/19 07:37 88 97 09/29/19 07:32 83 97 09/29/19 07:31 20 09/29/19 07:27 85 137/83 97 09/29/19 07:22 37.4 C 83 20 97 09/29/19 07:17 91 H 97 09/29/19 07:12 88 132/82 97 09/29/19 07:07 85 97 09/29/19 07:02 93 H 98 09/29/19 07:00 18 09/29/19 06:58 82 118/62 09/29/19 06:57 84 96 09/29/19 06:52 94 H 96 09/29/19 06:47 90 95 09/29/19 06:43 88 120/66 94 09/29/19 06:42 91 H 98 09/29/19 06:37 89 98 09/29/19 06:35 94 H 93 09/29/19 06:32 93 H 97 09/29/19 06:30 95 H 20 94 09/29/19 06:28 92 H 137/84 09/29/19 06:27 88 98 09/29/19 06:22 98 H 97 09/29/19 06:20 96 H 93 09/29/19 06:17 91 H 97 09/29/19 06:15 84 94 09/29/19 06:14 81 142/75 H 09/29/19 06:12 84 95 09/29/19 06:09 84 94 09/29/19 06:07 84 94 09/29/19 06:04 83 94 09/29/19 06:02 83 96 09/29/19 06:00 18 09/29/19 05:58 93 H 126/77 09/29/19 05:57 93 H 97 09/29/19 05:56 103 H 91 09/29/19 05:52 92 H 98 09/29/19 05:50 37.1 C 09/29/19 05:47 92 H 98 09/29/19 05:43 89 131/73 09/29/19 05:42 93 H 94 09/29/19 05:37 89 94 09/29/19 05:36 85 94 09/29/19 05:32 85 96 09/29/19 05:31 89 94 09/29/19 05:30 16 09/29/19 05:28 84 135/78 09/29/19 05:27 86 97 09/29/19 05:25 87 94 09/29/19 05:22 88 95 09/29/19 05:17 86 96 09/29/19 05:12 84 133/82 96 09/29/19 05:07 83 96 09/29/19 05:05 83 94 09/29/19 05:02 87 96 09/29/19 05:00 16 09/29/19 04:57 84 131/77 95 09/29/19 04:52 83 97 09/29/19 04:47 86 97 09/29/19 04:43 82 133/78 09/29/19 04:42 86 96 09/29/19 04:37 85 97 09/29/19 04:32 87 96 09/29/19 04:30 16 09/29/19 04:27 83 137/79 97 09/29/19 04:22 85 100 09/29/19 04:17 91 H 99 09/29/19 04:16 94 H 93 09/29/19 04:12 98 H 159/85 H 97 09/29/19 04:11 100 H 93 09/29/19 04:07 96 H 98 09/29/19 04:02 97 H 98 09/29/19 04:00 20 09/29/19 03:58 110 H 126/80 09/29/19 03:57 102 H 137/83 97 09/29/19 03:52 122 H 97 09/29/19 03:47 85 98 09/29/19 03:45 37.1 C 09/29/19 03:42 79 121/56 L 100 09/29/19 03:37 97 H 99 09/29/19 03:32 84 100 09/29/19 03:30 16 09/29/19 03:29 83 93 09/29/19 03:28 80 137/84 09/29/19 03:27 82 100 09/29/19 03:20 81 99 09/29/19 03:15 83 98 09/29/19 03:12 74 125/65 09/29/19 03:10 81 96 09/29/19 03:05 79 97 09/29/19 03:00 82 18 96 09/29/19 02:58 80 137/74 09/29/19 02:55 77 97 09/29/19 02:50 83 93 09/29/19 02:45 79 96 09/29/19 02:43 84 128/74 09/29/19 02:41 81 94 09/29/19 02:40 81 95 09/29/19 02:35 80 96 09/29/19 02:30 76 16 96 09/29/19 02:29 73 117/64 09/29/19 02:25 88 99 09/29/19 02:20 79 96 09/29/19 02:15 81 99 09/29/19 02:12 83 152/79 H 09/29/19 02:10 86 100 09/29/19 02:05 76 97 09/29/19 02:00 82 16 98 09/29/19 01:58 88 92 09/29/19 01:57 82 131/65 09/29/19 01:55 78 99 09/29/19 01:50 82 98 09/29/19 01:45 37.1 C 73 98 09/29/19 01:42 88 134/77 09/29/19 01:40 83 97 09/29/19 01:35 82 98 09/29/19 01:30 77 16 97 09/29/19 01:28 81 131/72 09/29/19 01:25 76 96 09/29/19 01:20 77 95 09/29/19 01:15 80 98 09/29/19 01:12 85 135/81 09/29/19 01:11 89 94 09/29/19 01:10 91 H 98 09/29/19 01:05 86 97 09/29/19 01:00 81 16 100 09/29/19 00:57 77 128/81 09/29/19 00:55 77 98 09/29/19 00:54 37.2 C 95 H 94 09/29/19 00:50 77 98 09/29/19 00:47 75 94 09/29/19 00:45 76 93 09/29/19 00:42 73 116/72 09/29/19 00:41 72 93 09/29/19 00:40 77 97 09/29/19 00:36 74 94 09/29/19 00:35 72 95 09/29/19 00:30 81 18 98 09/29/19 00:27 74 126/69 09/29/19 00:25 91 H 100 09/29/19 00:22 77 94 09/29/19 00:20 76 95 09/29/19 00:15 78 97 09/29/19 00:12 82 122/76 09/29/19 00:10 81 98 09/29/19 00:05 80 97 09/29/19 00:02 77 93 09/29/19 00:00 82 18 96 09/28/19 23:59 76 114/69 09/28/19 23:55 78 96 09/28/19 23:50 80 98 09/28/19 23:45 73 97 09/28/19 23:42 73 118/63 09/28/19 23:40 81 99 09/28/19 23:35 77 97 09/28/19 23:30 73 20 98 09/28/19 23:29 74 125/64 09/28/19 23:25 79 98 09/28/19 23:20 83 99 09/28/19 23:15 82 98 09/28/19 23:13 81 112/60 09/28/19 23:10 81 97 09/28/19 23:05 80 96 09/28/19 23:00 36.9 C 85 16 98 09/28/19 22:57 82 119/66 09/28/19 22:55 78 97 09/28/19 22:50 79 96 09/28/19 22:45 77 95 09/28/19 22:44 80 94 09/28/19 22:42 72 115/64 09/28/19 22:40 79 97 09/28/19 22:39 79 94 09/28/19 22:35 74 96 09/28/19 22:30 77 20 98 09/28/19 22:27 77 123/65 09/28/19 22:25 74 95 09/28/19 22:20 73 96 09/28/19 22:15 81 98 09/28/19 22:12 83 128/71 09/28/19 22:10 82 96 09/28/19 22:05 81 98 09/28/19 22:00 79 18 97 06 21:56 81 129/72 09/28/19 21:55 77 98 20 21:50 72 97 09/28/19 21:45 80 99 09/28/19 21:40 84 97 09/28/19 21:36 78 92 09/28/19 21:35 77 98 0620 21:31 75 127/76 09/28/19 21:30 72 16 99 09/28/19 21:25 76 96 09/28/19 21:20 75 94 09/28/19 21:15 79 119/57 L 97 09/28/19 21:10 77 97 07/06/20 21:05 76 96 09/28/19 21:00 36.8 C 79 18 119/56 L 98 09/28/19 20:55 77 98 09/28/19 20:53 74 122/60 09/28/19 20:50 79 98 09/28/19 20:45 77 99 Coding Level of Care Code None Diagnoses Gestational hypertension without significant proteinuria O13.9
[2019-09-29] MEDS ORDERED: ACETAMINOPHEN 325 MG TAB PO PRN (09:49)
[2019-09-29] MEDS ORDERED: OXYCODONE/ACETAMINOPHEN 5mg/325mg TAB PO PRN (09:49)
--- NOTE | 2019-09-29 09:52 | Delivery Summary ---
Vaginal Delivery Summary Date of Service September 29, 2019 Vaginal Delivery Summary Pre-operative Diagnosis: at 39 weeks [facility] Post-operative Diagnosis: same Procedure: pitocin augmentation arom epidural iupc second degree and left labial laceration with repair EBL: 400cc Anesthesia: epidural Procedure: The patient pushed for a little over 30 min to deliver a viable male in tang position. The shoulders were immedately delivered without issue and rest of the infant was then delivered without difficulty. The baby was placed on the maternal abdomen for evaluation. He was floppy. Cord was clamped and cut and infant was taken to the warmer for drying and attention. Cord blood and segment obtained. Placenta delivered spontaneous, intact with a three vessel cord. Cervix/sulci/rectum were intact. A second degree perineal laceration and a left labial lacertion was repaired in the normal standard fashion. Hemostasis obtained with dilute pitocin and fundal massage. Apgars were 8/9. Mother and baby doing well at the end of the delivery.
[2019-09-29] MEDS ORDERED: BENZOCAINE 20% AER SPR 82.5 GM CAN EXT PRN (10:28)
[2019-09-29] MEDS ORDERED: HYDROCORTISONE ACETATE 25 MG SUPP PR PRN (10:28)
[2019-09-29] MEDS ORDERED: SUPERCREAM 0.870% 15 GM JAR EXT PRN (10:28)
[2019-09-29] MEDS ORDERED: OXYTOCIN 30 UNITS/500 ML BAG IV PRN (10:28)
[2019-09-29] MEDS ORDERED: DIPHTHERIA/TETANUS/PERTUSSIS 0.5 ML SYR/VIAL IM ONE (10:28)
--- NOTE | 2019-09-29 10:52 | Anesthesia Procedure Note ---
Date of Service September 29, 2019 Anesthesia Post Epidural Note Vital Signs Vital Signs: Temp Pulse Resp BP Pulse Ox 99.0 F 93 H 20 152/82 H 95 09/29/19 08:37 09/29/19 10:48 09/29/19 10:32 09/29/19 10:48 09/29/19 09:22 Pain Intensity Bilateral Abdomen: Pain Intensity: 2 Notes Mental Status: alert / awake / arousable and participated in evaluation Nausea / Vomiting: adequately controlled Pain: adequately controlled Airway Patency, RR, SpO2: stable & adequate BP & HR: stable & adequate Hydration State: stable & adequate Neuraxial Anesthesia: was administered and sensory block is resolving Anesthetic Complications: no major complications apparent and Pt Satisfied with anesthetic care Epidural: Removed without complications and With tip intact
[2019-09-29] MEDS: IBUPROFEN 600 MG TAB PO PRN ×2 (12:42→20:52)
[2019-09-29] MEDS: DOCUSATE SODIUM 100 MG CAP PO SCH (20:49)
[2019-09-30 06:17] LABS: Hematocrit (blood only) 27.8 % (37-47); Hemoglobin 9.3 g/dL (12.0-16.0)
--- NOTE | 2019-09-30 06:37 | Obstetrical Progress Note ---
Date of Service September 30, 2019 Assessment & Plan (1) Status post vaginal delivery: Doing well. Routine care. (2) Gestational hypertension without significant proteinuria: Pressures wnl since delivery. Subjective Ambulation: ambulating normally Voiding: no voiding problems Passing Gas:: No Diet Tolerance:: regular diet Lochia:: Small Feeding Type:: breast feeding Physical Exam Constitutional WD/WN, vitals as above Cardiovascular Extremities: + edema (tr); no calf tenderness Psychiatric A+Ox3, euthymic affect Results & Data ([facility]) Vital Signs (Past 12 Hours) Vital Signs Temp Pulse Pulse Resp BP Pulse Ox 09/30/19 04:55 36.7 C 79 16 107/75 98 09/29/19 23:40 36.6 C 96 H 14 119/78 98 09/29/19 19:25 37 C 86 86 16 118/77 98
[2019-09-30] MEDS: DOCUSATE SODIUM 100 MG CAP PO SCH ×2 (08:20→21:12)
[2019-09-30] MEDS: PRENATAL VITAMIN 1 TAB PO SCH (08:20)
[2019-09-30] MEDS: IBUPROFEN 600 MG TAB PO PRN ×2 (08:22→21:13)
[2019-09-30] MEDS ORDERED: bisacodyL 5 MG TABEC PO SCH (20:00)
--- NOTE | 2019-10-01 08:41 | Obstetrical Progress Note ---
Date of Service October 01, 2019 Assessment & Plan (1) Status post vaginal delivery: Subjective Ambulation: ambulating normally Voiding: no voiding problems Passing Gas:: Yes Diet Tolerance:: regular diet Lochia:: Small Feeding Type:: breast feeding Physical Exam Constitutional WD/WN, vitals as above Eyes PERRL, conjunctivae normal, anicteric sclerae Neck normal visual inspection Respiratory normal respiratory effort and able to speak in complete sentences; no respiratory distress and no labored breathing Cardiovascular Rate/Rhythm: regular rate and regular rhythm Extremities: no edema Chest (Breasts) Chest: normal inspection of chest Gastrointestinal (Abdomen) Inspection/Auscultation: abdomen normal to inspection Soft, postgravid Psychiatric A+Ox3, euthymic affect Genitourinary OB Exam Abdomen: + fundal height Fundus: + firm and + relation to umbilicus ( fundus just below umbilicus); not tender Results & Data ([facility]) Vital Signs (Past 12 Hours) Vital Signs Temp Pulse Resp BP Pulse Ox 10/01/19 00:15 97.7 F 78 20 112/73 97 09/30/19 21:54 98.6 F 77 20 122/79 99
[2019-10-01] MEDS ORDERED: bisacodyL 10 MG SUPP PR PRN (09:00)
[2019-10-01] MEDS: PRENATAL VITAMIN 1 TAB PO SCH (09:13)
[2019-10-01] MEDS: DOCUSATE SODIUM 100 MG CAP PO SCH (09:13)
[2019-10-01] MEDS: IBUPROFEN 600 MG TAB PO PRN (09:51)
== END 2019-10-01 11:50 | disposition home or self-care (01) | DRG 807 ==
LOC: 4S1 07:26 → 4S2 09-29 13:35

== ENCOUNTER 2021-11-22 07:38 | Inpatient (IN) ==
[2021-11-22] MEDS ORDERED: OXYTOCIN 30 UNITS/500 ML BAG IV PRN ×3 (08:01→20:38)
[2021-11-22] MEDS ORDERED: LIDOCAINE 1% LOCAL 20 ML VIAL INFIL PRN (08:01)
[2021-11-22 08:29] LABS: Hematocrit (blood only) 33.4 % (34.1-44.9); Hemoglobin 11.3 g/dl (12.0-16.0); Mean Corpuscular Hemoglobin 30.4 pg (25.0-34.0); Mean Corpuscular Hgb Conc 33.8 g/dL (32.0-36.0); Mean Corpuscular Volume 89.8 fL (80.0-100.0); Mean Platelet Volume 10.2 fL (9.4-12.3); Platelet Count 169 K/uL (130-400); RDW Coefficient of Variation 13.6 % (11.5-14.5); RDW Standard Deviation 44.8 fL (36.4-46.3); Red Blood Count 3.72 M/uL (3.93-5.22); White Blood Count 9.04 K/ul (4.8-10.8)
--- NOTE | 2021-11-22 09:24 | History & Physical Report ---
Date of Service November 22, 2021 Assessment & Plan (1) Encounter for induction of labor: Plan: Admit, iv, labs. fhts categ 1. Begin pitocin, plan arom. Epidural when desires. (2) Obesity in , antepartum: (3) Hypothyroid in , antepartum: Admission and Anticipated Discharge Date Admission Date: November 22, 2021 History of Present Illness Chief Complaint: Induction of labor Primary Care Provider: Marcella Caldwell MD 25 y/o at 39w4d ega here for elective induction of labor. Denies rom, vb, ctx. +FM. PNC c/b 1. obesity in - growth scan 09/28/21 54% 2. 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 Allergies Allergy/AdvReac Type Severity Reaction Status Date / Time Sulfa (Sulfonamide AdvReac Mild rash Verified 11/21/21 09:37 Antibiotics) Penicillins AdvReac Unknown rash Verified 11/21/21 09:37 Home Medications Medication Instructions Recorded Confirmed Type vit no.95-ferrous 1 tab PO DAILY 06/20/21 11/22/21 History fumarate 28 mg-folic acid 800 mcg tablet () levothyroxine 100 mcg tablet 100 mcg PO DAILY #90 tabs 09/20/21 11/22/21 Rx (Euthyrox) magnesium 250 mg tablet 250 mg PO DAILY 11/22/21 11/22/21 History Patient History Medical History (Updated 11/22/21 @ 09:42 by Tameka Orlando MD, FACOG) Asthma Gestational hypertension without significant proteinuria Hypothyroid Obesity (BMI 30-39.9) Ovarian cyst Surgical History S/P lateral meniscal repair S/P MCL repair [place] teeth extracted Family History Father Hypertension AA (alcohol abuse) Grandfather Diabetes Heart disease Brother Heart murmur Mother Dyslipidemia Sister Thyroid disease Denies family history of Ovarian cancer Prostate cancer Breast cancer Social History (Updated 11/22/21 @ 07:58 by Janice Wallace RN) Smoking Status: Former smoker Tobacco Type: Cigarettes Cigarettes Per Day: 4; Smoking End Date: quit with ; Second Hand Exposure: No; Hx Alcohol Use: No Hx Substance Use: No Preferred Language: Lebanese Communication Ability: Effective Hearing Ability: Normal 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 [employer] Other Information That Helps Us Care for You: No Feels Safe at Home: Yes Safety Concerns: Feels Safe At This Time Childhood Exposure to Second-Hand Smoke: Yes Gender Identity: Female Assistive Devices: Glasses Review of Systems See HPI Physical Exam Constitutional: WD/WN, vitals as above Respiratory: No increased work of breathing Cardiovascular: Clinically well perfused +edema, no calf tenderness Gastrointestinal (Abdomen): soft, NT, gravid efw 8-9# Psychiatric: A+Ox3, euthymic affect Genitourinary: Manual OB Exam: + cervical dilation 3 cm, + cervical effacement (25%) and + station (exam per Dr. Orlando) high OB Exam Monitor Tracing: + external FHT monitor used, + external uterine monitor used (none), + category I and + normal FHT variability Exam per Dr. Orlando Balloon De La Garza removed from vagina Results & Data ([facility]) Vital Signs (Past 12 Hours) Vital Signs Temp Pulse Resp BP 11/22/21 07:51 36.5 C 87 20 136/75 Supervising Physician Co-Signing Physician Notes Resident Physician Supervision Note: I was present with Dr. Ojeda during the history and exam. I discussed the case with the resident and agree with the findings and plan as documented in the note. Any exceptions or clarifications are listed here: pt desires elective induction. de la garza ripening balloon last pm. needs pitocin, with pattern and improved station will plan arom. fhts categ 1. Documented By: Tameka Orlando MD, FACOG Resident Activity Tracking Resident Involvement: Resident Care Provided Care Provided: Adult Hospital Medicine
[2021-11-22] MEDS: LACTATED RINGER'S 1,000 ML IV PRN ×2 (09:36→17:14)
--- NOTE | 2021-11-22 11:48 | Labor Progress Brief Note ---
Date of Service November 22, 2021 Subjective no pain with ctx Assessment & Plan (1) Encounter for induction of labor: Plan will see how arom helps labor pattern. pt desires to try for unmedicated , supported. fhts categ 1. Admission and Anticipated Discharge Date Admission Date: November 22, 2021 Physical Exam Constitutional: WD/WN, vitals as above Genitourinary: Manual OB Exam: + cervical dilation 3 cm, + cervical effacement 50%, + station -2 and + amniotic fluid (AROM) clear OB Exam Monitor Tracing: + external FHT monitor used, + external uterine monitor used (q2-5 pit at 9), + category I and + normal FHT variability Results & Data ([facility]) Vital Signs (Past 12 Hours) Vital Signs Temp Pulse Resp BP 11/22/21 11:36 78 134/73 11/22/21 11:06 86 20 123/75 11/22/21 10:36 82 20 124/76 11/22/21 10:13 77 119/77 11/22/21 07:51 97.7 F 87 20 136/75 Coding Level of Care Code None Diagnoses Encounter for induction of labor Z34.90
--- NOTE | 2021-11-22 15:29 | Labor Progress Brief Note ---
Date of Service November 22, 2021 Subjective feeling more pain with ctx. Assessment & Plan (1) Encounter for induction of labor: Plan some cx change. c/w pit. fhts categ 1. Admission and Anticipated Discharge Date Admission Date: November 22, 2021 Physical Exam Constitutional: WD/WN, vitals as above Genitourinary: Manual OB Exam: + cervical dilation 4 cm, + cervical effacement 50% and + station -2 OB Exam Monitor Tracing: + external FHT monitor used, + external uterine monitor used (q2-3 pit at 15), + category I and + normal FHT variability Results & Data ([facility]) Vital Signs (Past 12 Hours) Vital Signs Temp Pulse Resp BP 11/22/21 15:07 78 123/74 11/22/21 14:07 98.1 F 73 16 128/71 11/22/21 13:07 82 122/73 11/22/21 12:06 97.9 F 80 20 128/70 11/22/21 11:36 78 134/73 11/22/21 11:06 86 20 123/75 11/22/21 10:36 82 20 124/76 11/22/21 10:13 77 119/77 11/22/21 07:51 97.7 F 87 20 136/75 Coding Level of Care Code None Diagnoses Encounter for induction of labor Z34.90
--- NOTE | 2021-11-22 18:59 | Labor Progress Brief Note ---
Date of Service November 22, 2021 Subjective painful ctx Assessment & Plan (1) Encounter for induction of labor: Plan fhts categ 1. pt now asking for epidural. some cx change but likely needs more pitocin, pit max changed to 30. will see if epidural helps her relax and then titrate pitocin accordingly. Admission and Anticipated Discharge Date Admission Date: November 22, 2021 Physical Exam Constitutional: WD/WN, vitals as above Genitourinary: Manual OB Exam: + cervical dilation 5 cm, + cervical effacement 60% and + station -2 OB Exam Monitor Tracing: + external FHT monitor used, + external uterine monitor used (q2-5 pit at 20), + category I and + normal FHT variability Results & Data ([facility]) Vital Signs (Past 12 Hours) Vital Signs Temp Pulse Resp BP 11/22/21 18:02 97.9 F 76 20 131/75 11/22/21 17:07 98.1 F 88 20 131/76 11/22/21 16:07 98.1 F 79 20 130/81 11/22/21 15:07 78 123/74 11/22/21 14:07 98.1 F 73 16 128/71 11/22/21 13:07 82 122/73 11/22/21 12:06 97.9 F 80 20 128/70 11/22/21 11:36 78 134/73 11/22/21 11:06 86 20 123/75 11/22/21 10:36 82 20 124/76 11/22/21 10:13 77 119/77 11/22/21 07:51 97.7 F 87 20 136/75 Coding Level of Care Code None Diagnoses Encounter for induction of labor Z34.90
[2021-11-22] MEDS ORDERED: ePHEDrine sulfate 50 MG/ML AMP ONE (19:00)
[2021-11-22] MEDS ORDERED: BUPIVACAINE 0.25% 30 ML VIAL ONE (19:01)
[2021-11-22] MEDS ORDERED: LIDOCAINE 2%/EPINEPHRINE 1:200,000 20 ML SDV ONE (19:01)
[2021-11-22] MEDS ORDERED: fentaNYL citrate 100 MCG/2 ML VIAL ONE (19:01)
[2021-11-22] MEDS ORDERED: fentaNYL 2MCG/ML ROPIVACAINE 1.25MG/ML 100 ML BAG EPI ONE (19:01)
[2021-11-22] MEDS ORDERED: SODIUM CHLORIDE 0.9% INJ 10 ML VIAL ONE (19:01)
[2021-11-22] MEDS ORDERED: NALOXONE HCL 1 MG in SODIUM CHLORIDE 0.9% 1000ML 1,000 ML IV PRN (19:07)
[2021-11-22] MEDS ORDERED: NALBUPHINE HCL INJ 10 MG/ML AMP IV PRN (19:07)
[2021-11-22] MEDS ORDERED: NALOXONE HCL 0.4 MG/1 ML VIAL/CARP IV PRN (19:07)
[2021-11-22] MEDS ORDERED: ePHEDrine sulfate 50 MG/ML AMP IV PRN (19:07)
[2021-11-22] MEDS ORDERED: fentaNYL 2MCG/ML ROPIVACAINE 1.25MG/ML 100 ML BAG EPI PRN (19:07)
[2021-11-22] MEDS ORDERED: diphenhydrAMINE 50 MG/ML VIAL IV PRN (19:07)
--- NOTE | 2021-11-22 19:07 | Anesthesiology Consultation ---
Date of Service November 22, 2021 Assessment & Plan (1) Encounter for pre-operative examination: Chart Review Chart Review: Patient NOT seen in Pre Admission Testing and Acceptable Risk for Labor Epidural Consults Requested none History Height/Weight Height: 5 ft 6 in Weight: 130.635 kg Allergies Allergy/AdvReac Type Severity Reaction Status Date / Time Sulfa (Sulfonamide AdvReac Mild rash Verified 11/21/21 09:37 Antibiotics) Penicillins AdvReac Unknown rash Verified 11/21/21 09:37 Medications Home Medications Medication Instructions Recorded Confirmed Last Taken vit no.95-ferrous 1 tab PO DAILY 06/20/21 11/22/21 11/22/21 05:30 fumarate 28 mg-folic acid 800 mcg tablet () levothyroxine 100 mcg tablet 100 mcg PO DAILY #90 tabs 09/20/21 11/22/21 11/22/21 05:00 (Euthyrox) magnesium 250 mg tablet 250 mg PO DAILY 11/22/21 11/22/21 11/22/21 05:00 Active Medications Generic Name Dose Route Start Last Admin Trade Name Annalise PRN Reason Stop Dose Admin Lactated Ringer's 1,000 mls @ 125 mls/hr 11/22/21 08:01 11/22/21 18:47 Lr IV 11/24/21 08:00 999 mls/hr .Q8H PRN Infusion L&D Protocol Protocol Oxytocin 30 units in 500 mls @ 23 mls/hr 11/22/21 08:07 11/22/21 18:31 Pitocin IV 11/24/21 08:06 1.38 units/hr .[id number] PRN 23 mls/hr Labor Induction/Augmentation Titration Protocol 1.38 UNITS/HR Past Medical History Medical History Asthma Gestational hypertension without significant proteinuria Hypothyroid Obesity (BMI 30-39.9) Ovarian cyst Past Family History Family History Father Hypertension AA (alcohol abuse) Grandfather Diabetes Heart disease Brother Heart murmur Mother Dyslipidemia Sister Thyroid disease Denies family history of Ovarian cancer Prostate cancer Breast cancer Past Surgical History Surgical History S/P lateral meniscal repair S/P MCL repair [place] teeth extracted Social History Smoking Status: Former smoker tobacco type: cigarettes Smoking cigarettes per day: 4 Smoking End Date: quit with Hx Alcohol Use: No Hx Substance Use: No substance use type: does not use Physical Exam Vital Signs Last Vital Signs Temp 97.9 F 11/22/21 18:02 Pulse 76 11/22/21 18:02 Resp 20 11/22/21 18:02 BP 131/75 11/22/21 18:02 Testing Laboratory Results 11/22/21 08:10 Blood Type A Positive 11/22/21 08:10 Antibody Screen NEGATIVE 11/22/21 08:10
--- NOTE | 2021-11-22 20:32 | Delivery Summary ---
Vaginal Delivery Summary Date of Service November 22, 2021 Vaginal Delivery Summary and 2nd Degree LAC The patient dilated to complete and pushed to deliver a viable female infant Apgars 8 and 9 via over 2nd degree perineal laceration. Mouth and nose bulb suctioned at perineum. Loose nuchal x 1 reduced easily. Shoulders and body delivered with ease. Infant was vigorous and crying at . Cord clamped at 30 seconds of life and to maternal abdomen where the cord was then doubly clamped and cut. Placenta delivered spontaneously and intact, three-vessel cord. Hemostasis achieved with dilute pitocin and uterine massage. Laceration repaired in routine fashion with 3-0 vicryl. Cervix and sulci intact. EBL 300 cc. Mother and baby stable in recovery. [facility] Vaginal Delivery Charge Delivery Type Details: and 2nd Degree LAC
[2021-11-22] MEDS ORDERED: BENZOCAINE 20% AER SPR 82.5 GM CAN EXT PRN (20:38)
[2021-11-22] MEDS ORDERED: oxyCODONE/ACETAMINOPHEN 5mg/325mg TAB PO PRN (20:38)
[2021-11-22] MEDS ORDERED: HYDROCORTISONE ACETATE 25 MG SUPP PR PRN (20:38)
[2021-11-22] MEDS ORDERED: DIPHTHERIA/TETANUS/PERTUSSIS 0.5 ML SYR/VIAL IM ONE (20:38)
[2021-11-22] MEDS ORDERED: ACETAMINOPHEN 325 MG TAB PO PRN (20:38)
[2021-11-22] MEDS ORDERED: OXYTOCIN 20 UNITS in LACTATED RINGER'S 1,000 ML IV SCH (20:45)
[2021-11-22] MEDS: IBUPROFEN 600 MG TAB PO PRN (22:19)
[2021-11-23] MEDS ORDERED: LEVOTHYROXINE SODIUM 100 MCG TABLET PO SCH (06:30)
--- NOTE | 2021-11-23 06:59 | Obstetrical Progress Note ---
Date of Service <Claudia Ojeda MD - Last Filed: 11/23/21 07:59> November 23, 2021 Assessment & Plan <Claudia Ojead MD - Last Filed: 11/23/21 07:59> (1) Encounter for care and examination after delivery: Plan PPD1 GBS- RI Rh+ Satisfactory post progress Encourage ambulation <Tameka Orlando MD, FACOG - Last Filed: 11/23/21 08:05> (1) Encounter for care and examination after delivery: Day #:: 1 Subjective <Claudia Ojeda MD - Last Filed: 11/23/21 07:59> Ambulation: ambulating normally Voiding: no voiding problems Passing Gas:: Yes Diet Tolerance:: regular diet Feeding Type:: breast feeding bleeding is slowing Physical Exam <Claudia Ojeda MD - Last Filed: 11/23/21 07:59> Constitutional WD/WN, vitals as above Respiratory normal respiratory effort, lungs clear to auscultation Cardiovascular RRR, no murmur, no edema no calf tenderness Gastrointestinal (Abdomen) uterus fundus firm at the level of the umbilicus Psychiatric A+Ox3, euthymic affect Results & Data ([facility]) <Claudia Ojeda MD - Last Filed: 11/23/21 07:59> Vital Signs (Past 12 Hours) Vital Signs Temp Pulse Pulse Resp BP BP Pulse Ox 11/23/21 04:50 36.7 C 79 18 128/85 11/22/21 23:05 36.7 C 81 18 129/77 11/22/21 22:20 18 11/22/21 21:20 18 11/22/21 21:05 18 11/22/21 20:50 18 11/22/21 20:35 18 11/22/21 20:20 36.8 C 18 11/22/21 19:30 18 11/22/21 19:30 18 11/22/21 19:32 18 11/22/21 19:32 18 11/22/21 19:34 18 11/22/21 19:34 18 11/22/21 19:36 18 11/22/21 19:36 18 11/22/21 19:38 18 11/22/21 19:38 18 11/22/21 22:18 86 133/60 11/22/21 21:35 87 141/78 H 11/22/21 21:20 95 H 140/79 11/22/21 21:05 96 H 161/89 H 11/22/21 20:50 105 H 136/84 11/22/21 20:35 101 H 132/81 11/22/21 20:20 107 H 125/89 11/22/21 19:15 18 11/22/21 19:15 36.8 C 18 11/22/21 20:07 89 100 11/22/21 20:02 98 11/22/21 20:02 103 H 11/22/21 20:02 100 H 190/80 H 11/22/21 20:00 107 H 171/69 H 11/22/21 19:59 100 H 91 11/22/21 19:57 100 H 88 L 11/22/21 19:55 95 H 132/67 11/22/21 19:53 96 H 11/22/21 19:52 91 H 97 11/22/21 19:53 90 139/73 90 11/22/21 19:51 90 137/70 11/22/21 19:49 92 H 138/72 11/22/21 19:47 88 129/71 100 11/22/21 19:45 90 142/77 H 11/22/21 19:43 90 140/67 11/22/21 19:42 100 11/22/21 19:42 85 11/22/21 19:42 85 139/65 11/22/21 19:40 88 18 110/65 11/22/21 19:37 84 139/73 100 11/22/21 19:35 85 140/72 11/22/21 19:32 82 100 11/22/21 19:33 84 141/70 H 11/22/21 19:31 77 136/74 11/22/21 19:29 90 148/82 H 11/22/21 19:27 96 H 150/79 H 100 11/22/21 19:25 87 141/79 H 11/22/21 19:22 98 11/22/21 19:22 90 11/22/21 19:22 83 138/80 11/22/21 19:17 96 H 98 <Tameka Orlando MD, FACOG - Last Filed: 11/23/21 08:05> Co-Signing Physician Notes Resident Physician Supervision Note: I was present with Dr. Ojeda during the history and exam. I discussed the case with the resident and agree with the findings and plan as documented in the note. Any exceptions or clarifications are listed here: doing well, baby is good, wants to go home later. , eating, voiding. abd soft ff 2 down nt, ext tr edema, nt calves. instructions reviewed, f/u 6 wk ppcheck. Documented By: Tameka Orlando MD, FACOG Resident Activity Tracking <Claudia Ojeda MD - Last Filed: 11/23/21 07:59> Resident Involvement: Resident Care Provided Care Provided: Adult Hospital Medicine
[2021-11-23] MEDS: DOCUSATE SODIUM 100 MG CAP PO SCH ×2 (07:40→20:21)
[2021-11-23] MEDS: IBUPROFEN 600 MG TAB PO PRN ×2 (07:40→17:10)
[2021-11-23] MEDS ORDERED: PRENATAL VITAMIN 1 TAB PO SCH (08:00)
[2021-11-23] MEDS ORDERED: MAGNESIUM OXIDE 400 MG TAB PO SCH (09:00)
--- NOTE | 2021-11-23 10:06 | Anesthesia Procedure Note ---
Date of Service November 23, 2021 Anesthesia Post Epidural Note Vital Signs Vital Signs: Temp Pulse Resp BP Pulse Ox 36.7 C 79 18 128/85 100 11/23/21 04:50 11/23/21 04:50 11/23/21 04:50 11/23/21 04:50 11/22/21 20:07 Pain Intensity Abdomen: Pain Intensity: 1 Notes Mental Status: alert / awake / arousable Nausea / Vomiting: adequately controlled Pain: adequately controlled Airway Patency, RR, SpO2: stable & adequate BP & HR: stable & adequate Hydration State: stable & adequate Neuraxial Anesthesia: was administered and sensory block is resolving Anesthetic Complications: no major complications apparent and Pt Satisfied with anesthetic care Epidural: Removed without complications and With tip intact
== END 2021-11-23 21:11 | disposition home or self-care (01) | DRG 807 ==
LOC: 4S1 07:38 → 4E2 23:17